=== PATIENT | female | born 1970 | race Caucasian/White ===

== ENCOUNTER → 2024-02-26 10:33 | Outpatient (CLI) | payer OTHER, SELFPAY | PROVIDERS: PCP Family Medicine; Visit Provider Physician Assistant | DX: R30.0 Dysuria (principal) | CPT/HCPCS: 87077; 87086; 87186 ==

== ENCOUNTER 2025-02-01 08:16 | Emergency (ER) | payer OTHER, SELFPAY ==
[2025-02-01 08:23] VITALS: BP 115/69; PULSE 99; RESP 22; O2SAT 96; BMI 29.0
--- NOTE | 2025-02-01 08:24 | DI.RAD.S_ITS ---
PROCEDURE: XR CHEST 1V INDICATIONS: cough fever TECHNIQUE: One view of the chest was acquired. COMPARISON: None. FINDINGS: Surgical changes and devices: None. Lungs and pleura: Mild pulmonary vascular congestion. Ill-defined airspace opacities are seen in right upper and lower lung field as well as left perihilar region and infrahilar region. No pleural effusion or pneumothorax. Mediastinum: Mediastinal contours appear normal. Heart size is normal. Bones and chest wall: No suspicious bony lesions. Overlying soft tissues appear unremarkable. IMPRESSION: Finding is concerning for ill-defined small bilateral multilobar infiltrates. No pleural effusion or pneumothorax. Dictated by: Xavier Shahid M.D. on 02/01/2025 at 8:50 Approved by: Xavier Shahid M.D. on 02/01/2025 at 8:50
--- NOTE | 2025-02-01 08:26 | ED.URI ---
HPI - URI/Sore Throat General Chief Complaint: Upper Respiratory Symptoms Stated Complaint: possible pneumonia Time Seen by Provider: 02/01/25 08:23 Mode of arrival: Ambulatory History of Present Illness HPI Narrative: Patient is a 54-year-old female history HSV depression anxiety presenting today with generally not feeling well. Her kids have tested positive for RSV and influenza. She started feeling sick a couple days ago. She has dry heaving diarrhea just started yesterday just twice a day. She has a cough she feels like she is sort of short of breath. Denies any kind of chest pain no real abdominal pain. Just generally feels like poorly. She feels weak but has not passed out Related Data Home Medications ?Medication ?Instructions ?Recorded ?Confirmed naproxen sodium 220 mg tablet 220 mg PO BID PRN 03/09/24 03/09/24 (Aleve) sulfamethoxazole 400 1 tab PO DAILY 03/09/24 03/09/24 mg-trimethoprim 80 mg tablet Previous Rx's ?Medication ?Instructions ?Recorded valacyclovir 1 gram tablet 1,000 mg PO DAILY #90 tabs 12/26/24 (Valtrex) paroxetine HCl 20 mg tablet 20 mg PO DAILY #60 tabs 01/26/25 amoxicillin 500 mg capsule 1,000 mg (2 x 500 mg) PO TID 5 02/01/25 days #30 caps azithromycin 250 mg tablet See Rx Instructions PO .COMPLEX #6 02/01/25 tabs Allergies Allergy/AdvReac Type Severity Reaction Status Date / Time No Known Drug Allergies Allergy Verified 03/09/24 07:21 Patient History Surgical History (Updated 11/20/23 @ 08:37 by Mary Landa DO) Geraldine teeth removed (07/17/85) S/P LASIK surgery of both eyes (07/17/97) Hx of cholecystectomy (10/22/09) Social History Smoking Status: Never smoker Smoking Status: Never smoker Exam Initial Vital Signs Initial Vital Signs: Vital Signs Pulse Rate 99 H 02/01/25 08:23 Respiratory Rate 22 02/01/25 08:23 Blood Pressure 115/69 02/01/25 08:23 Pulse Oximetry 96 02/01/25 08:23 Oxygen Delivery Method Room Air 02/01/25 08:23 GENERAL: Alert 54-year-old female appears nontoxic but appears to not feel well HEENT: Head atraumatic,EOMI, pupils reactive, face symmetric, [moist] mucous membranes CARDIOVASCULAR: Regular rate and rhythm without murmurs, rubs or gallops. RESPIRATORY: Slightly coarse breath sounds through out no significant dyspnea ABDOMEN: Soft, nontender. Normoactive bowel sounds all 4 quadrants. No guarding or rebound. EXTREMITIES: Normal range of motion, no clubbing or edema. Neurovascularly intact NEUROLOGICAL: Alert and oriented x4.Normal gait and speech. Cranial nerves II through XII grossly intact. SKIN: Warm, dry, no laceration, no petechiae, no rashes or lesions. Course Orders Ordered: ED Orders 02/01/25 08:24 Chest [XR chest 1V] Stat 02/01/25 08:30 CBC Auto Diff [Complete Blood Count AUTO DIFF] Stat CMP [Comprehensive Metabolic Panel] Stat Covid-19 + FLU A/B + RSV - PCR Stat Lactate (Lactic Acid) Stat Lipase Stat Discontinued Medications Albuterol/Ipratropium (Albuterol/Ipratropium 3 Ml Ampul) 3 ml INH NOW ONE Stop: 02/01/25 09:16 Last Admin: 02/01/25 09:34 Dose: 3 ml Documented By: LIAN Amoxicillin (Amoxicillin 250 Mg Capsule) 1,000 mg PO NOW ONE Stop: 02/01/25 10:56 Last Admin: 02/01/25 11:09 Dose: 1,000 mg Documented By: EKTA Azithromycin (Azithromycin 250 Mg Tablet) 500 mg PO NOW ONE Stop: 02/01/25 10:56 Last Admin: 02/01/25 11:25 Dose: 500 mg Documented By: EKTA Sodium Chloride (Normal Saline 0.9%) 1,000 mls @ 1,000 mls/hr IV BOLUS ONE Stop: 02/01/25 09:24 Last Infusion: 02/01/25 10:55 Dose: Infused Documented By: Admin: 02/01/25 08:35 Dose: 1,000 mls/hr Documented By: SARAH Sodium Chloride (Normal Saline 0.9%) 1,000 mls @ 1,000 mls/hr IV BOLUS ONE Stop: 02/01/25 11:54 Last Infusion: 02/01/25 12:04 Dose: Infused Documented By: Admin: 02/01/25 11:09 Dose: 1,000 mls/hr Documented By: EKTA Acetaminophen (Ofirmev) 1,000 mg in 100 mls @ 400 mls/hr IV NOW ONE Stop: 02/01/25 11:09 Last Infusion: 02/01/25 11:34 Dose: Infused Documented By: Admin: 02/01/25 11:08 Dose: 400 mls/hr Documented By: EKTA Ketorolac Tromethamine (Ketorolac 30 Mg/Ml Vial) 15 mg IV NOW ONE Stop: 02/01/25 08:25 Last Admin: 02/01/25 08:36 Dose: 15 mg Documented By: SARAH Ondansetron HCl (Ondansetron 4 Mg/2 Ml Inj) 4 mg IV NOW ONE Stop: 02/01/25 08:25 Last Admin: 02/01/25 08:36 Dose: 4 mg Documented By: SARAH Potassium Chloride (Potassium Chloride 20 Meq Tab) 40 meq PO NOW ONE Stop: 02/01/25 09:54 Last Admin: 02/01/25 09:57 Dose: 40 meq Documented By: EKTA Vital Signs Vital signs: Vital Signs - 8 hr 02/01/25 08:23 02/01/25 08:27 02/01/25 08:30 Temperature 99.2 F Pulse Rate 99 H 85 Respiratory Rate 22 19 Blood Pressure 115/69 115/69 Pulse Oximetry 96 97 Oxygen Delivery Method Room Air Fraction of Inspired Oxygen 02/01/25 09:34 02/01/25 11:30 02/01/25 12:04 Temperature Pulse Rate 82 94 H 95 H Respiratory Rate 16 21 22 Blood Pressure 110/68 115/69 Pulse Oximetry 99 96 96 Oxygen Delivery Method Room Air Room Air Room Air Fraction of Inspired Oxygen 21 MDM - URI/Sore Throat Lab Data 02/01/25 08:30 02/01/25 08:30 Labs: Lab Results 02/01/25 Range/Units 08:30 WBC 11.7 H (4.5-11.0) X10^3/uL RBC 4.34 (4.0-5.2) X10^6/uL Hgb 14.1 (12.0-16.0) g/dL Hct 40.3 (36-46) % MCV 93.0 (80-100) fL MCH 32.5 (26-34) PG MCHC 35.0 (30-36) % RDW 12.9 (11.6-14.8) % Plt Count 200 (150-400) X10^3/uL Neut % (Auto) 89.0 H (50-75) % Lymph % (Auto) 7.4 L (25-40) % [place] % (Auto) 3.1 (3-14) % Eos % (Auto) 0.0 L (2-4) % Baso % (Auto) 0.5 (0-2) % Neut # (Auto) 07623 H (4713-5398) /uL Lymph # (Auto) 900 L (3965-3981) /uL [place] # (Auto) 400 (0-900) /uL Eos # (Auto) 0 (0-450) /uL Baso # (Auto) 100 (0-100) /uL Sodium 137 (137-145) mmol/L Potassium 3.0 L (3.4-5.1) mmol/L Chloride 100 (98-107) mmol/L Carbon Dioxide 27 (22-32) mmol/L BUN 11 (7-17) mg/dL Creatinine 0.67 (0.52-1.04) mg/dL Estimated GFR > 60 (>60) mL/min BUN/Creatinine Ratio 16.4 (6-22) Glucose 129 H (70-99) mg/dL Lactate 1.5 (0.7-2.1) mmol/L Calcium 8.6 (8.4-10.2) mg/dL Total Bilirubin 0.9 (0.2-1.3) mg/dL AST 58 H (14-36) IU/L ALT 99 H (<35) IU/L Alkaline Phosphatase 77 (38-126) U/L Total Protein 7.6 (6.3-8.2) g/dL Albumin 4.1 (3.5-5.0) g/dL Globulin 3.5 (1.7-4.1) g/dL Albumin/Globulin Ratio 1.2 (1.0-2.8) Lipase 29 (23-300) U/L SARS-CoV-2 (PCR) Negative (Negative) Influenza A (RT-PCR) Flu a positive H (NEGATIVE) Influenza B (RT-PCR) Flu b negative (NEGATIVE) RSV (PCR) Negative (Negative) Imaging Data Chest x-ray: Radiologist's Impression: PROCEDURE: XR CHEST 1V INDICATIONS: cough fever TECHNIQUE: One view of the chest was acquired. COMPARISON: None. FINDINGS: Surgical changes and devices: None. Lungs and pleura: Mild pulmonary vascular congestion. Ill-defined airspace opacities are seen in right upper and lower lung field as well as left perihilar region and infrahilar region. No pleural effusion or pneumothorax. Mediastinum: Mediastinal contours appear normal. Heart size is normal. Bones and chest wall: No suspicious bony lesions. Overlying soft tissues appear unremarkable. IMPRESSION: Finding is concerning for ill-defined small bilateral multilobar infiltrates. No pleural effusion or pneumothorax. Dictated by: Xavier Shahid M.D. on 02/01/2025 at 8:50 Approved by: Xavier Shahid M.D. on 02/01/2025 at 8:50 MDM Narrative Medical decision making narrative: MDM CC: Cough fever Complicating co-morbidities: Hypothyroid Data collected from: Patient, sick kids at home Medical records reviewed: Differential considered: Sepsis pneumonia myositis Exam documented above, pertinent findings include: Alert 54-year-old appears to not feel well some crackles throughout no significant wheezing Lab Test results independently reviewed as above. Pertinent findings: CBC WBCs 11.7 mild left shift CMP shows some mild hypokalemia potassium of 3.0 no other significant abnormality Lactate 1.5 Bilirubin 0.5 AST 50 ALT 99 Independently reviewed EKG as above Sinus rhythm without ischemia Imaging studies independently reviewed: Chest x-ray shows bilateral small we will also over infiltrates Consultations: none Treatments: Albuterol, potassium, IV fluids, Toradol, amoxicillin, azithromycin Re-evaluations: Patient re-evaluated after 1 L of IV fluids and Toradol still not feeling great. Decided to another L of fluids and IV Tylenol Discussion: Patient 54-year-old female positive for influenza A x-ray concerning for pneumonia. She received albuterol. He has a mild leukocytosis but a normal lactate. She is given her 1st dose of antibiotics here in the ED. At this time supportive care with outpatient antibiotic treatment for community-acquired pneumonia. Discharge Plan Departure Patient Disposition: Home Clinical Impression: Influenza A, Pneumonia Instructions: DI for Pneumonia -- Adult, DI for Influenza -- Adult Activity Restrictions/Additional Instructions: *You have been diagnosed with pneumonia, influenza A *What to do: At this time increase fluids as tolerated. *Continue to take medications as directed Amoxicillin 1000 mg 3 times a day for 5 days Azithromycin take as directed Tylenol 1000 mg every 6 hours for [id number] pain or fever Motrin 600 mg every 6 hours if needed for [id number] pain or fever *Follow up with your primary care provider in 2-3 days or call [phone] *Return to ER if you should have increasing shortness of breath not tolerating fluids increasing confusion or any new, worsening or concerning symptoms Prescriptions: New amoxicillin 500 mg capsule 1,000 mg PO TID 5 Days Qty: 30 0RF azithromycin 250 mg tablet See Rx Instructions PO .COMPLEX Qty: 6 0RF Rx Instructions: For 250 mg dose pack: take 500 mg today (day 1), then 250 mg for 4 days (days 2-5) No Action valacyclovir [Valtrex] 1 gram tablet 1,000 mg PO DAILY Qty: 90 0RF paroxetine HCl 20 mg tablet 20 mg PO DAILY Qty: 60 0RF naproxen sodium [Aleve] 220 mg tablet 220 mg PO BID PRN sulfamethoxazole-trimethoprim 400-80 mg tablet 1 tab PO DAILY Referrals: Mary Landa DO [Primary Care Provider, Family Practice] Stand Alone Forms: Patient Portal/API
[2025-02-01 08:27] VITALS: TEMP 37.3
[2025-02-01 08:30] VITALS: BP 115/69; PULSE 85; RESP 19; O2SAT 97
[2025-02-01] MEDS: SODIUM CHLORIDE 0.9% 1,000 ML 1000 ML IV ×2 (08:35→11:09)
[2025-02-01] MEDS: KETOROLAC 30 MG/ML VIAL 15 MG IV (08:36)
[2025-02-01] MEDS: ONDANSETRON 4 MG/2 ML INJ IV (08:36)
[2025-02-01 08:52] LABS: Add Manual Diff / Slide Review NO; Hematocrit 40.3 % (36-46); Hemoglobin 14.1 g/dL (12.0-16.0); Lymphocytes Absolute Auto 900 /uL (1100-4500); Mean Corpuscular HGB Conc 35.0 % (30-36); Mean Corpuscular Hemoglobin 32.5 PG (26-34); Mean Corpuscular Volume 93.0 fL (80-100); Platelet Count 200 X10^3/uL (150-400)
[2025-02-01 08:58] LABS: Lactate (Lactic Acid) 1.5 mmol/L (0.7-2.1); Lipase 29 U/L (23-300)
[2025-02-01 08:59] LABS: Alanine Aminotransferase 99 IU/L (<35); Albumin 4.1 g/dL (3.5-5.0); Albumin Globulin Ratio 1.2 (1.0-2.8); Alkaline Phosphatase 77 U/L (38-126); Blood Urea Nitrogen 11 mg/dL (7-17); Calcium 8.6 mg/dL (8.4-10.2); Carbon Dioxide 27 mmol/L (22-32); Chloride 100 mmol/L (98-107); Estimated Glomerular Filt Rate > 60 mL/min (>60); Globulin 3.5 g/dL (1.7-4.1); Glucose 129 mg/dL (70-99); HEMOLYSIS < 15 (0-50); Potassium 3.0 mmol/L (3.4-5.1); Sodium 137 mmol/L (137-145); Total Protein 7.6 g/dL (6.3-8.2)
--- NOTE | 2025-02-01 09:16 | PC.NURSE ---
patient stated her pain is coming back as well as SOB. RT called for eval and poss treatment.
[2025-02-01 09:30] LABS: Influenza A - CEPHEID Flu A POSITIVE (NEGATIVE); Influenza B - CEPHEID Flu B NEGATIVE (NEGATIVE)
[2025-02-01 09:34] VITALS: PULSE 82; RESP 16; O2SAT 99
[2025-02-01] MEDS: ALBUTEROL/IPRATROPIUM 3 ML AMPUL INH (09:34)
--- NOTE | 2025-02-01 09:41 | PC.NURSE ---
Patient got breathing treatment. RT stated improvement from treatment.
[2025-02-01] MEDS: POTASSIUM CHLORIDE 20 MEQ TAB 40 MEQ PO (09:57)
[2025-02-01 10:35] LABS: COVID-19 CEPHEID 4-PLEX PCR Negative (Negative)
[2025-02-01] MEDS: ACETAMINOPHEN IV 1,000 MG/100 ML VIAL 400 MG IV (11:08)
[2025-02-01] MEDS: AMOXICILLIN 250 MG CAPSULE 1000 MG PO (11:09)
[2025-02-01] MEDS: AZITHROMYCIN 250 MG TABLET 500 MG PO (11:25)
[2025-02-01 11:30] VITALS: BP 110/68; PULSE 94; RESP 21; O2SAT 96
[2025-02-01 12:04] VITALS: BP 115/69; PULSE 95; RESP 22; O2SAT 96
== END 2025-02-01 12:16 | disposition home or self-care (01) ==
PROVIDERS: Emergency Provider Emergency Medicine; PCP Family Medicine
DX: J10.08 Influenza due to other identified influenza virus with other specified pneumonia (principal); R19.7 Diarrhea, unspecified; F32.A Depression, unspecified
CPT/HCPCS: 36415; 71045; 80053; 83605; 83690; 85025; 87637; 94640; 96365; 96375; 99284; J0131; J1885; J2405; J7030